=== PATIENT | male | born 1945 | race Caucasian/White ===

== ENCOUNTER 2017-12-08 10:43 | Day surgery (SDC) | payer MEDICARE ==
[2017-12-05 13:19] VITALS: BP 142/83
[2017-12-05 14:10] LABS: INTERNATIONAL NORMALIZED RATIO 1.02 (0.93-1.1); PROTHROMBIN TIME 10.5 Seconds (9.6-11.5)
[2017-12-05 14:13] LABS: ANION GAP 6 mmol/L (5-15); CHLORIDE 103 mmol/L (98-107)
[2017-12-05 14:16] LABS: CREATININE 0.97 mg/dL (0.7-1.3)
[~2017-12-08] VITALS: Ht 175.3 cm; Wt 72.7 kg
[~2017-12-08 10:43] MED LIST: AMLO1CAP6 PO; ASPI-515 PO; ASPI-621 PO; ATOR40TA PO; BIMA2.5D EACHEYE; BRIM5DRO3 LEFTEYE; CALC1CAP8 PO; FINA5TAB4 PO; FLUT9.9S NAS; HERBAL SUPPLEMENTS; IBUP-1484 PO; INSU100C SQ-INSULIN; INSU100V8 SQ; LEVO100T PO; LIOT5TAB10 PO; METH750T87 PO; MONT10TA6 PO; MULT-516 PO; NAPR220T77 PO; OMEP40CA6 PO; OXYC-302 PO; SULF1TAB24 PO; TAMS-11 PO; TIMO5DRO5 LEFTEYE; ZOLP12.52 PO
[2017-12-08] MEDS ORDERED: SODIUM CHLORIDE 0.9% 1,000 ML IV ONE (11:24)
[2017-12-08] MEDS ORDERED: DIPHENHYDRAMINE 50 MG/ML, 1ML ONE (12:00)
[2017-12-08] MEDS ORDERED: DIPHENHYDRAMINE 50 MG/ML, 1ML IVPush ONE (12:00)
[2017-12-08] MEDS ORDERED: FENTANYL PF 100 MCG/2ML ONE (12:08)
[2017-12-08] MEDS ORDERED: HEPARIN 1,000 UNITS/ML, 10ML ONE (12:08)
[2017-12-08] MEDS ORDERED: VERAPAMIL 2.5 MG/ML, 2ML ONE (12:08)
[2017-12-08] MEDS ORDERED: LIDOCAINE-MPF 2%, 2ML ONE (12:08)
[2017-12-08] MEDS ORDERED: MIDAZOLAM 1 MG/ML, 5ML ONE (12:08)
[2017-12-08] MEDS ORDERED: SODIUM CHLORIDE 0.9% 1,000 ML IV SCH (13:06)
== END 2017-12-08 16:30 | disposition home or self-care (01) ==
LOC: CACL 10:43
PROVIDERS: ATTEND Internal Medicine Cardiovascular Disease
DX: I25.10 Atherosclerotic heart disease of native coronary artery without angina pectoris (principal); E11.9 Type 2 diabetes mellitus without complications; I10 Essential (primary) hypertension; E78.2 Mixed hyperlipidemia; Z79.82 Long term (current) use of aspirin; Z79.899 Other long term (current) drug therapy; Z98.890 Other specified postprocedural states
CPT/HCPCS: 36415; 80048; 85610; 85730; 93454; 99156; C1769; C1894; J1200; J1644; J2250; J3010; J3490; Q9967

== ENCOUNTER → 2020-06-23 | Outpatient (CLI) | payer MEDICARE ==
[~2020-06-23] MED LIST changes: -ASPI-515 PO; -ASPI-621 PO; +ASPI-963 PO; +ASPI81TA45 PO; -IBUP-1484 PO; +IBUP-1902 PO; +OMEP40CA42 PO; -OMEP40CA6 PO; -OXYC-302 PO; +OXYC1TAB14 PO
== END | disposition home or self-care (01) ==
LOC: CVU 08:37
PROVIDERS: ATTEND Internal Medicine Cardiovascular Disease
DX: I65.23 Occlusion and stenosis of bilateral carotid arteries (principal)
CPT/HCPCS: 93880

== ENCOUNTER → 2020-11-06 | Outpatient (CLI) | payer MEDICARE ==
[~2020-11-06] MED LIST changes: -OMEP40CA42 PO; +OMEP40CA8 PO; +REGADENOSON 0.4 MG/5 ML SYRINGE ONE; +SULF-23 PO; -SULF1TAB24 PO
== END | disposition home or self-care (01) ==
LOC: CFH 11:53
PROVIDERS: ATTEND Registered Nurse
DX: I48.91 Unspecified atrial fibrillation (principal); R07.89 Other chest pain; I35.0 Nonrheumatic aortic (valve) stenosis
CPT/HCPCS: 78452; 93017; A9502; J2785